=== PATIENT | male | born 1995 | race Hispanic/Latino ===

== ENCOUNTER 2017-08-22 22:44 | Emergency (ER) | payer OTHER ==
[2017-08-22 22:45] VITALS: BMI 22.2
[2017-08-22 22:56] VITALS: TEMP 98.1; O2SAT 99
[2017-08-22 23:09] VITALS: BP 137/95; PULSE 128; RESP 18
--- NOTE | 2017-08-22 23:15 | ED PDOC ---
Arrival/HPI - General Chief Complaint: Substance Abuse Time Seen by Provider: 08/22/17 22:46 Historian: Patient, EMS - History of Present Illness Narrative History of Present Illness (Text): A 22 year old male, whose past medical history includes epilepsy and Gilbert Syndrome, is brought into the emergency department for loss of consciousness. As per EMS, the patient was found unresponsive at home. Narcan was given to the patient multiple times en route to the emergency department and the patient eventually awoke. The patient states he last remembers being at home and does not recall how he got to [facility]. The patient states that he is currently in no pain and wishes to go home. He states he has lost consciousness many times. He denies any drug or alcohol use. The patient denies fevers, chills, headache, dizziness, chest pain, shortness of breath, dyspnea on exertion, cough, abdominal pain, nausea, vomiting, diarrhea, back pain, neck pain, urinary/bowel changes, or any other complaint. Time/Duration: Prior to Arrival Symptom Onset: Sudden Activities at Onset: Rest, Light Context: Home Past Medical History - Provider Review Nursing Documentation Reviewed: Yes - Infectious Disease Hx of Infectious Diseases: None - Cardiac Hx Cardiac Disorders: No - Pulmonary Hx Respiratory Disorders: No - Neurological Hx Neurological Disorder: Yes Hx Seizures: Yes - HEENT Hx HEENT Disorder: No - Renal Hx Renal Disorder: No - Endocrine/Metabolic Hx Endocrine Disorders: No - Hematological/Oncological Hx Blood Disorders: No - Integumentary Hx Dermatological Disorder: No - Musculoskeletal/Rheumatological Hx Musculoskeletal Disorders: No - Gastrointestinal Other/Comment: "gilbert disease" - Psychiatric Hx Substance Use: No Family/Social History - Physician Review Nursing Documentation Reviewed: Yes Family/Social History: No Known Family HX Smoking Status: Never Smoked Hx Alcohol Use: No Hx Substance Use: No Allergies/Home Meds Allergies/Adverse Reactions: Allergies amoxicillin Allergy (Verified 12/09/15 18:24) ITCHING Home Medications: Home Meds Medication Instructions Recorded Confirmed Clonazepam [Klonopin] 1 mg PO DAILY PRN 08/22/17 08/22/17 Review of Systems - Physician Review All systems were reviewed & negative as marked: Yes - Review of Systems Cardiovascular: absent: Chest Pain Neurological: absent: Headache Physical Exam - Physical Exam Narrative Physical Exam (Text): 08/22/17 23:16 Constitutional: No acute distress. Head: Normocephalic. Atraumatic. Eyes: Pupils constricted. ENT: Moist mucous membranes. Neck: Supple. No midline tenderness. Cardiovascular: Tachycardic rate. Chest: No tenderness. Respiratory: Clear to auscultation bilaterally. GI: Soft. Nontender. Nondistended. Back: No CVA tenderness. No midline tenderness. Musculoskeletal: No tenderness or swelling of extremities. Full ROM x 4. Skin: No rash. Neurologic: Alert, no focal deficit. Vital Signs Reviewed: Yes Vital Signs Temp Pulse Resp BP Pulse Ox 08/22/17 23:08 128 H 18 137/95 H 99 08/22/17 22:54 98.1 F 110 H 20 155/109 H 99 Temperature: Afebrile Blood Pressure: Hypertensive Pulse: Tachycardic Respiratory Rate: Normal Appearance: Positive for: Comfortable, Unkept Pain Distress: None Mental Status: Positive for: Alert and Oriented X 3 Medical Decision Making ED Course and Treatment: 08/22/17 23:17 Impression: 22 year old male brought into the emergency department via EMS after being found unresponsive at home. Progress Notes: 08/22/17 23:17: Leaving Against Medical Advice (AMA): The patient is choosing to leave against medical advice. I have personally explained to the patient that choosing to do so may result in permanent bodily harm or . I have discussed at great length that without further evaluation and monitoring there may be unforeseen circumstances and/or deterioration causing permanent bodily harm or as a result of their choice. The patient is alert, oriented, and shows the mental capacity to make clear decisions regarding the patients health care at this time. He was able to verbalize to me the various differential diagnoses I was considering and the risks of having these diagnoses go undiagnosed including if he loses consciousness again when no one is present, possible leading to or permanent disability. The patient continues to wish to leave against medical advice. The patient has been advised that they should return to the emergency room immediately if they change their mind at any time, or if their condition begins to change or worsen in any way. - Lab Interpretations Lab Results: Lab Results 08/22/17 22:48: POC Glucose (mg/dL) 176 H - Scribe Statement The provider has reviewed the documentation as recorded by the Scribe Sonia Vidal Provider Scribe Attestation: All medical record entries made by the Scribe were at my direction and personally dictated by me. I have reviewed the chart and agree that the record accurately reflects my personal performance of the history, physical exam, medical decision making, and the department course for this patient. I have also personally directed, reviewed, and agree with the discharge instructions and disposition. Disposition/Present on Arrival - Present on Arrival Any Indicators Present on Arrival: No History of DVT/PE: No History of Uncontrolled Diabetes: No Urinary Catheter: No History of Decub. Ulcer: No History Surgical Site Infection Following: None - Disposition Have Diagnosis and Disposition been Completed?: No Diagnosis: Syncope Disposition: AGAINST MEDICAL ADVICE Disposition Time: 23:49 Condition: UNKNOWN Discharge Instructions (ExitCare): Leaving Against Medical Advice Forms: [employer] (British)
== END 2017-08-22 23:21 | disposition left against medical advice (07) ==
LOC: ED 22:44
DX: R55 Syncope and collapse (principal)

== ENCOUNTER 2018-01-03 20:19 | Emergency (ER) | payer SELFPAY ==
[2018-01-03 20:48] VITALS: TEMP 97.7
[2018-01-03 22:40] VITALS: RESP 18
[2018-01-03 22:59] LABS: BASO # 0.02 K/mm3 (0.0-2.0); BASO % 0.2 % (0.0-3.0); EOS # 0.1 (0.0-0.7); EOS % 0.7 % (1.5-5.0); GRAN # 6.88 (1.4-6.5); GRAN % 78.6 % (50.0-68.0); HEMOGLOBIN 15.2 g/dL (14.0-18.0); LYMPH # 1.5 (1.2-3.4); LYMPH % 16.8 % (22.0-35.0); MEAN CELL VOLUME 84.9 fl (80.0-105.0); MEAN CORPUSCULAR HEMOGLOBIN 30.2 pg (25.0-35.0); MEAN CORPUSCULAR HGB CONC 35.5 g/dl (31.0-37.0); MONO # 0.3 (0.1-0.6); MONO % 3.7 % (1.0-6.0); RBC 5.04 10^6/uL (3.5-6.1); RED CELL DISTRIBUTION WIDTH 12.3 % (11.5-14.5); WHITE BLOOD COUNT 8.8 10^3/ul (4.5-11.0)
[2018-01-03 23:05] LABS: ACETAMINOPHEN < 10.0 ug/ml (10.0-20.0); SALICYLATE < 1 mg/dL (2.0-20.0)
[2018-01-03 23:06] LABS: ALB/GLOB RATIO 1.6 (1.1-1.8); ALBUMIN 4.9 g/dL (3.0-4.8); ALT/SGPT 29 U/L (7-56); AST/SGOT 25 U/L (17-59); BLOOD UREA NITROGEN 12 mg/dL (7-21); CALCIUM 9.8 mg/dL (8.4-10.5); GFR AFRICAN-AMERICAN > 60; GFR NON-AFRICAN AMERICAN > 60
[2018-01-03 23:06] LABS: PH,URINE 7.5 (4.7-8.0); URINE BILIRUBIN NEGATIVE (NEGATIVE); URINE BLOOD TRACE-INTACT (NEGATIVE); URINE GLUCOSE (UA) NEGATIVE (NEGATIVE); URINE LEUKOCYTE ESTERASE NEGATIVE Leu/uL (NEGATIVE); URINE PROTEIN NEGATIVE mg/dL (<30 mg/dL); URINE UROBILINOGEN 0.2 E.U./dL (<1 E.U./dL)
[2018-01-03 23:10] LABS: URINE APPEARANCE CLEAR (CLEAR); URINE COLOR YELLOW (YELLOW)
[2018-01-03 23:11] LABS: URINE RBC 0 - 2 /hpf (0-2); URINE WBC NEGATIVE /hpf (0-6)
[2018-01-03 23:12] LABS: URINE BACTERIA NEG (NEG)
[2018-01-03 23:20] LABS: BARBITURATES, UR NEGATIVE (NEGATIVE); BENZODIAZEPINES, UR NEGATIVE (NEGATIVE); OPIATES, UR NEGATIVE (NEGATIVE); PHENCYCLIDINE, UR POSITIVE (NEGATIVE)
--- NOTE | 2018-01-04 00:08 | ED PDOC ---
Arrival/HPI <Lexa Blevins - Last Filed: 01/04/18 00:16> - General Historian: EMS <Nawaf Barron - Last Filed: 01/04/18 01:50> - General Chief Complaint: Substance Abuse Time Seen by Provider: 01/03/18 20:27 - History of Present Illness Narrative History of Present Illness (Text): 01/04/18 00:04 22yo male with past medical history of epilepsy and Gilbert syndrome bib EMS for acting bizarre on the street. Pt denied any drug use in Emergency department. Asking to be discharged home, attempting to ran from the Emergency department. (Nawaf Barron A) Past Medical History - Provider Review Nursing Documentation Reviewed: Yes - Infectious Disease Hx of Infectious Diseases: None - Cardiac Hx Cardiac Disorders: No - Pulmonary Hx Respiratory Disorders: No - Neurological Hx Neurological Disorder: Yes Hx Seizures: Yes - HEENT Hx HEENT Disorder: No - Renal Hx Renal Disorder: No - Endocrine/Metabolic Hx Endocrine Disorders: No - Hematological/Oncological Hx Blood Disorders: No - Integumentary Hx Dermatological Disorder: No - Musculoskeletal/Rheumatological Hx Musculoskeletal Disorders: No - Gastrointestinal Other/Comment: "gilbert disease" - Psychiatric Hx Substance Use: No <Nawaf Barron A - Last Filed: 01/04/18 01:50> Family/Social History - Physician Review Nursing Documentation Reviewed: Yes Family/Social History: Unknown Family HX Smoking Status: Never Smoked Hx Alcohol Use: No Hx Substance Use: No <Nawaf Barron A - Last Filed: 01/04/18 01:50> Allergies/Home Meds <Lexa Blevins - Last Filed: 01/04/18 00:16> <Nawaf Barron A - Last Filed: 01/04/18 01:50> Allergies/Adverse Reactions: Allergies amoxicillin Allergy (Verified 01/03/18 20:48) ITCHING Home Medications: Home Meds Medication Instructions Recorded Confirmed Unobtainable 01/03/18 01/03/18 Review of Systems - Review of Systems Systems not reviewed;Unavailable: Uncooperative <Nawaf Barron A - Last Filed: 01/04/18 01:50> Physical Exam Vital Signs Reviewed: Yes Temperature: Afebrile Blood Pressure: Normal Pulse: Tachycardic Respiratory Rate: Normal Appearance: Positive for: Well-Appearing, Non-Toxic, Comfortable Pain Distress: None Mental Status: Positive for: Alert and Oriented X 3 - Systems Exam Head: Present: Atraumatic, Normocephalic Pupils: Present: Other (Constricted pupil) Extroacular Muscles: Present: EOMI Conjunctiva: Present: Normal Mouth: Present: Moist Mucous Membranes Neck: Present: Normal Range of Motion Respiratory/Chest: Present: Clear to Auscultation, Good Air Exchange. No: Respiratory Distress, Accessory Muscle Use Cardiovascular: Present: Regular Rate and Rhythm, Normal S1, S2. No: Murmurs Abdomen: No: Tenderness, Distention, Peritoneal Signs Back: Present: Normal Inspection Upper Extremity: Present: Normal Inspection. No: Cyanosis, Edema Lower Extremity: Present: Normal Inspection. No: Edema Neurological: Present: GCS=15, CN II-XII Intact, Speech Normal Skin: Present: Warm, Dry, Normal Color. No: Rashes Psychiatric: Present: Alert, Oriented x 3, Normal Insight, Normal Concentration <Nawaf Barron A - Last Filed: 01/04/18 01:50> Vital Signs Temp Pulse Resp BP Pulse Ox 01/04/18 00:33 101 H 18 97 01/04/18 00:10 110 H 18 131/62 100 01/03/18 22:36 120 H 18 122/86 100 01/03/18 20:43 97.7 F 140 H 17 135/85 96 Medical Decision Making <Lexa Blevins - Last Filed: 01/04/18 00:16> <Nawaf Barron A - Last Filed: 01/04/18 01:50> ED Course and Treatment: 01/04/18 01:47 PT in Emergency department for stated history. He became physical in Emergency department, posing a danger to himself and Emergency department staffs. He was placed on 4points restraints. Pt was noted to be tachy in Emergency department and was hydrated. Lab was ordered and reviewed. UDS + PCP and THC Pt became more calm in Emergency department. AAO x3 in Emergency department. the girlfriend came to Emergency department to pick him up and he was discharged to her care. (Nawaf Barron A) - Lab Interpretations Lab Results: 01/03/18 22:48 01/03/18 22:48 Lab Results 01/03/18 22:48: Alcohol, Quantitative < 10 01/03/18 22:48: Salicylates < 1 L, Acetaminophen < 10.0 L 01/03/18 22:48: Sodium 145, Potassium 3.8, Chloride 105, Carbon Dioxide 23, Anion Gap 21 H, BUN 12, Creatinine 0.8, Est GFR ( Amer) > 60, Est GFR ( Non-Af Amer) > 60, Random Glucose 105, Calcium 9.8, Total Bilirubin 1.6 H, AST 25, ALT 29, Alkaline Phosphatase 52, Total Protein 8.1, Albumin 4.9 H, Globulin 3.1, Albumin/Globulin Ratio 1.6 01/03/18 22:48: WBC 8.8, RBC 5.04, Hgb 15.2, Hct 42.8, MCV 84.9, MCH 30.2, MCHC 35.5, RDW 12.3, Plt Count 187, MPV 10.0, Gran % 78.6 H, Lymph % (Auto) 16.8 L, Chaves % (Auto) 3.7, Eos % (Auto) 0.7 L, Baso % (Auto) 0.2, Gran # 6.88 H, Lymph # (Auto) 1.5, Chaves # (Auto) 0.3, Eos # (Auto) 0.1, Baso # (Auto) 0.02 01/03/18 22:42: Urine Opiates Screen Negative, Urine Methadone Screen Negative, Ur Barbiturates Screen Negative, Ur Phencyclidine Scrn Positive H, Ur Amphetamines Screen Negative, U Benzodiazepines Scrn Negative, U Oth Cocaine Metabols Negative, U Cannabinoids Screen Positive H 01/03/18 22:42: Urine Color Yellow, Urine Appearance Clear, Urine pH 7.5, Ur Specific Dora <= 1.005, Urine Protein Negative, Urine Glucose (UA) Negative, Urine Ketones Negative, Urine Blood Trace-intact H, Urine Nitrate Negative, Urine Bilirubin Negative, Urine Urobilinogen 0.2, Ur Leukocyte Esterase Negative , Urine RBC 0 - 2, Urine WBC Negative, Ur Epithelial Cells None, Urine Bacteria Neg - Medication Orders Current Medication Orders: Discontinued Medications Lorazepam (Ativan) 1 mg IM ONCE ONE PRN Reason: Protocol Stop: 01/03/18 21:06 Last Admin: 01/03/18 21:15 Dose: 1 mg IM Administration Charges Document 01/03/18 21:15 KELLIE (Rec: 01/03/18 21:17 RG [id number]) Injection Site MAR Injection Site Left Deltoid Charges for Administration # of IM Administrations 1 - PA / TRAFFIC ENGINEER / Resident Statement MD/DO has reviewed & agrees with the documentation as recorded. <Lexa Blevins - Last Filed: 01/04/18 00:16> Disposition/Present on Arrival <Lexa Blevins - Last Filed: 01/04/18 00:16> - Present on Arrival Any Indicators Present on Arrival: No History of DVT/PE: No History of Uncontrolled Diabetes: No Urinary Catheter: No History of Decub. Ulcer: No History Surgical Site Infection Following: None - Disposition Have Diagnosis and Disposition been Completed?: Yes Disposition Time: 00:45 Patient Plan: Discharge <Nawaf Barron - Last Filed: 01/04/18 01:50> - Disposition Diagnosis: Polysubstance abuse Disposition: HOME/ ROUTINE Patient Problems: Current Active Problems Problem Status Onset Polysubstance abuse Acute Condition: STABLE Discharge Instructions (ExitCare): Polysubstance Abuse Additional Instructions: Follow up with your doctor Return to Emergency department for any new symptoms Referrals: Graciela Hall MD [Staff Provider] - Follow up with primary Forms: [employer] (Georgian)
[2018-01-04 00:10] VITALS: BP 131/62
[2018-01-04 00:34] VITALS: PULSE 101; O2SAT 97
== END 2018-01-04 00:50 | disposition home or self-care (01) ==
LOC: ED 20:19
DX: F19.10 Other psychoactive substance abuse, uncomplicated (principal); G40.909 Epilepsy, unspecified, not intractable, without status epilepticus; E80.4 Gilbert syndrome
CPT/HCPCS: 80053; 81001; 85025; 96372; 99284; G0480; J2060